=== PATIENT | male | born 1960 ===

== ENCOUNTER 2025-01-24 12:30 | Inpatient (IN) | payer OTHER ==
[~2025-01-24] VITALS: Ht 167.6 cm; Wt 110.2 kg
[2025-01-24] MEDS ORDERED: HYDRALAZINE HCL25 MG PO (13:48)
[2025-01-24] MEDS ORDERED: IRBESARTAN75 MG PO (13:48)
[2025-01-24] MEDS ORDERED: NIFEDIPINE20 MG PO (13:48)
[2025-01-24] MEDS ORDERED: VALSARTAN-HCTZ1 EACH PO (13:48)
[2025-01-31] MEDS ORDERED: METRONIDAZOLE/SODIUM CHLORIDE 500 MG/100 ML PIGGYBACK IV ONE (10:02)
[2025-01-31] MEDS ORDERED: LIDOCAINE HCL 1%/EPINEPHRINE 20ML VIAL IJ ONE (12:53)
[2025-01-31] MEDS ORDERED: BUPIVACAINE HCL/MPF 0.5% 30ML VIAL ONE (12:53)
[2025-01-31] MEDS ORDERED: levoFLOXacin IN DEXTROSE 5 % 5 MG/ML PIGGYBAG IV ONE (15:00)
[2025-01-31] MEDS ORDERED: DEXTROSE 50 % IN WATER 0.5 G/ML DISP.SYRIN IV PRN ×2 (18:00)
[2025-01-31] MEDS ORDERED: MORPHINE SULFATE 4 MG/ML CARTRIDGE IV PRN (18:00)
[2025-01-31] MEDS ORDERED: OxyCODONE HCL 5 MG TABLET (ROXICODONE) PO PRN (18:00)
[2025-01-31] MEDS ORDERED: RINGERS SOLUTION,LACTATED 1,000 ML IV SCH (18:00)
[2025-01-31] MEDS ORDERED: ONDANSETRON HCL 2 MG/ML VIAL IV PRN (18:00)
[2025-01-31] MEDS ORDERED: INSULIN LISPRO 1,000 UNIT/10 ML UNITS SUBCUTANEO PRN (18:00)
[2025-01-31] MEDS ORDERED: ACETAMINOPHEN 500 MG GEL..CAP PO SCH (20:00)
[2025-01-31 20:04] LABS: BASO % 0.1 % (0.1-1.2); EOS # 0.03 (0.04-0.54); EOS % 0.2 % (0.7-7.0); LYMPH # 1.35 (1.18-3.74); LYMPH % 7.1 % (19.3-53.1); MEAN PLATELET VOLUME 8.60 fl (9.4-12.4); MONO # 0.98 (0.24-0.82); MONO % 5.2 % (4.7-12.5); NEUT # 16.47 (1.56-6.13); NEUT % 86.9 % (34.0-71.1); RED CELL DISTRIBUTION WIDTH 13.1 % (11.6-14.4)
[2025-01-31 20:16] VITALS: BP 152/74; O2SAT 96
[2025-01-31 20:34] LABS: BUN CREA RATIO 17.0 (7.0-25.0); CREATININE SERUM 1.57 mg/dL (0.70-1.30); GFR 44.7; OSMOLALITY SERUM 284.0 MOSM/KG (275-295)
[2025-01-31 20:37] LABS: GLUCOSE FASTING 225.0 mg/dL (65-100)
[2025-01-31] MEDS ORDERED: FAMOTIDINE/PF 20 MG/2 ML VIAL IV PUSH SCH (21:00)
[2025-02-01] MEDS ORDERED: GABAPENTIN 300 MG CAPSULE PO SCH (01:00)
[2025-02-01 01:06] VITALS: BP 171/84; O2SAT 96
[2025-02-01 06:22] LABS: BASO % 0.4 % (0.1-1.2); EOS # 0.09 (0.04-0.54); EOS % 0.5 % (0.7-7.0); LYMPH # 1.98 (1.18-3.74); LYMPH % 10.1 % (19.3-53.1); MEAN PLATELET VOLUME 8.90 fl (9.4-12.4); MONO # 1.38 (0.24-0.82); MONO % 7.0 % (4.7-12.5); NEUT # 16.12 (1.56-6.13); NEUT % 81.7 % (34.0-71.1); RED CELL DISTRIBUTION WIDTH 12.6 % (11.6-14.4)
[2025-02-01 07:02] LABS: BUN CREA RATIO 15.0 (7.0-25.0); CREATININE SERUM 1.19 mg/dL (0.70-1.30); GFR 61.54; OSMOLALITY SERUM 280.0 MOSM/KG (275-295)
[2025-02-01 07:08] LABS: GLUCOSE FASTING 211.0 mg/dL (65-100)
[2025-02-01 08:00] VITALS: BP 149/94; O2SAT 97
[2025-02-01 08:33] VITALS: BP 110/73; O2SAT 100
[2025-02-01] MEDS ORDERED: PATIENTS OWN MEDICATION (MEDICAMENTO EN PISO) PO SCH (09:00)
[2025-02-01] MEDS ORDERED: NIFEDIPINE 60 MG TAB.SA.OSM PO SCH (09:00)
[2025-02-01] MEDS ORDERED: INSULIN GLARGINE,HUM.REC.ANLOG 1,000 UNITS/10 ML UNITS SUBCUTANEO STA (10:14)
[2025-02-01 14:00] VITALS: BP 135/82; O2SAT 96
[2025-02-01] MEDS ORDERED: ATORVASTATIN CALCIUM 40 MG TABLET PO SCH (17:00)
[2025-02-01] MEDS ORDERED: ENOXAPARIN SODIUM 40 MG/0.4 ML SYRINGE SUBCUTANEO SCH (17:00)
[2025-02-02 06:59] LABS: BASO % 0.4 % (0.1-1.2); EOS # 1.26 (0.04-0.54); EOS % 6.0 % (0.7-7.0); LYMPH # 4.09 (1.18-3.74); LYMPH % 19.4 % (19.3-53.1); MEAN PLATELET VOLUME 9.20 fl (9.4-12.4); MONO # 1.67 (0.24-0.82); MONO % 7.9 % (4.7-12.5); NEUT # 13.87 (1.56-6.13); NEUT % 65.9 % (34.0-71.1); RED CELL DISTRIBUTION WIDTH 13.4 % (11.6-14.4)
[2025-02-02 07:23] LABS: ALT/SGPT 21.0 U/L (12-78); AST/SGOT 13.0 U/L (15-37); BILIRUBIN TOTAL 1.01 mg/dL (0.3-1.2); BUN CREA RATIO 13.0 (7.0-25.0); CREATININE SERUM 1.14 mg/dL (0.70-1.30); GFR 64.67; GLOBULINA 3.1 G/DL (2.4-3.5); GLUCOSE FASTING 157.0 mg/dL (65-100); OSMOLALITY SERUM 282.0 MOSM/KG (275-295)
[2025-02-02 08:00] VITALS: BP 101/68; O2SAT 97
[2025-02-02] MEDS ORDERED: INSULIN GLARGINE,HUM.REC.ANLOG 1,000 UNITS/10 ML UNITS SUBCUTANEO SCH (09:00)
[2025-02-02] MEDS ORDERED: CIPROFLOXACIN IN 5 % DEXTROSE 200 ML IV SCH (09:00)
[2025-02-02] MEDS ORDERED: ENOXAPARIN SODIUM 40 MG/0.4 ML SYRINGE SUBCUTANEO SCH (09:00)
[2025-02-02] MEDS ORDERED: AMINO ACIDS/PROTEIN HYDROLYS 30 ML BLIST.PACK PO SCH (17:00)
[2025-02-02 18:27] VITALS: BP 114/72; O2SAT 97
[2025-02-03] VITALS: BP 128/74; O2SAT 96
[2025-02-03 06:17] LABS: BASO % 0.4 % (0.1-1.2); EOS # 0.96 (0.04-0.54); EOS % 4.8 % (0.7-7.0); LYMPH # 2.92 (1.18-3.74); LYMPH % 14.5 % (19.3-53.1); MEAN PLATELET VOLUME 8.80 fl (9.4-12.4); MONO # 1.60 (0.24-0.82); MONO % 7.9 % (4.7-12.5); NEUT # 14.49 (1.56-6.13); NEUT % 71.9 % (34.0-71.1); RED CELL DISTRIBUTION WIDTH 13.2 % (11.6-14.4)
[2025-02-03 07:19] LABS: BUN CREA RATIO 14.0 (7.0-25.0); CREATININE SERUM 1.19 mg/dL (0.70-1.30); GFR 61.54; GLUCOSE FASTING 119.0 mg/dL (65-100); OSMOLALITY SERUM 284.0 MOSM/KG (275-295)
[2025-02-03 08:00] VITALS: BP 117/74; O2SAT 98
[2025-02-03] MEDS ORDERED: INSULIN LISPRO 1,000 UNIT/10 ML UNITS SUBCUTANEO SCH (08:00)
[2025-02-03] MEDS ORDERED: INSULIN GLARGINE,HUM.REC.ANLOG 1,000 UNITS/10 ML UNITS SUBCUTANEO SCH (09:00)
[2025-02-03] MEDS ORDERED: POTASSIUM CHLORIDE 20MEQ/100ML H2O PB IV NR (12:00)
[2025-02-03 17:00] VITALS: BP 156/82; O2SAT 98
[2025-02-03] MEDS ORDERED: POTASSIUM PHOS,M-BASIC-D-BASIC 3 MM/ML VIAL IV NR (17:00)
[2025-02-03] MEDS ORDERED: Cyanocobalamin/Mecobalamin 1 TAB.SL SL NR (17:15)
[2025-02-03] MEDS ORDERED: SOD FERRIC GLUC COMPLX/SUCROSE 62.5 MG in 0.9 % SODIUM CHLORIDE 50 ML IV NR (17:15)
[2025-02-04 01:51] VITALS: BP 111/68; O2SAT 100
[2025-02-04 08:36] VITALS: BP 142/75; O2SAT 96
[2025-02-04] MEDS ORDERED: Cyanocobalamin/Mecobalamin 1 TAB.SL SL SCH (09:00)
[2025-02-04] MEDS ORDERED: SOD FERRIC GLUC COMPLX/SUCROSE 62.5 MG in 0.9 % SODIUM CHLORIDE 50 ML IV SCH (09:00)
[2025-02-04] MEDS ORDERED: INSULIN LISPRO 1,000 UNIT/10 ML UNITS SUBCUTANEO SCH (12:00)
[2025-02-04] MEDS ORDERED: VANCOMYCIN HCL 1,000 MG VIAL IV SCH (12:46)
[2025-02-04] MEDS ORDERED: VANCOMYCIN HCL 1,000 MG VIAL ONE ×2 (13:06→15:44)
[2025-02-04] MEDS ORDERED: MEROPENEM 500 MG/VIAL VIAL IV SCH (17:00)
[2025-02-05 02:52] VITALS: BP 141/82; O2SAT 98
[2025-02-05] MEDS ORDERED: DIATRIZOATE MEGLUMINE, SODIUM 30 ML BOTTLE PO NR (05:00)
[2025-02-05] MEDS ORDERED: VANCOMYCIN HCL 1,000 MG VIAL ONE ×2 (07:00→19:57)
[2025-02-05] MEDS ORDERED: INSULIN GLARGINE,HUM.REC.ANLOG 1,000 UNITS/10 ML UNITS SUBCUTANEO SCH ×2 (09:00)
[2025-02-05 09:11] VITALS: BP 138/84; O2SAT 97
[2025-02-05 11:21] LABS: BASO % 0.5 % (0.1-1.2); EOS # 1.19 (0.04-0.54); EOS % 7.2 % (0.7-7.0); LYMPH # 3.46 (1.18-3.74); LYMPH % 20.8 % (19.3-53.1); MEAN PLATELET VOLUME 8.20 fl (9.4-12.4); MONO # 1.49 (0.24-0.82); MONO % 9.0 % (4.7-12.5); NEUT # 10.22 (1.56-6.13); NEUT % 61.4 % (34.0-71.1); RED CELL DISTRIBUTION WIDTH 13.3 % (11.6-14.4)
[2025-02-05 12:20] LABS: BUN CREA RATIO 15.0 (7.0-25.0); CREATININE SERUM 0.85 mg/dL (0.70-1.30); GFR 90.75; GLUCOSE FASTING 155.0 mg/dL (65-100); OSMOLALITY SERUM 288.0 MOSM/KG (275-295)
[2025-02-05] MEDS ORDERED: MAGNESIUM SULFATE IN WATER 50 ML IV NR (13:00)
[2025-02-05 16:45] VITALS: BP 161/87; O2SAT 100
[2025-02-05] MEDS ORDERED: POTASSIUM CHLORIDE 20MEQ/100ML H2O PB IV NR (17:00)
[2025-02-05] MEDS ORDERED: VANCOMYCIN HCL 1,000 MG VIAL IV SCH (21:00)
[2025-02-06] MEDS ORDERED: POTASSIUM PHOS,M-BASIC-D-BASIC 3 MM/ML VIAL IV NR
[2025-02-06 00:43] VITALS: BP 137/81; O2SAT 100
[2025-02-06 06:27] LABS: BASO % 0.5 % (0.1-1.2); EOS # 0.98 (0.04-0.54); EOS % 6.9 % (0.7-7.0); LYMPH # 3.94 (1.18-3.74); LYMPH % 27.7 % (19.3-53.1); MEAN PLATELET VOLUME 8.30 fl (9.4-12.4); MONO # 1.35 (0.24-0.82); MONO % 9.5 % (4.7-12.5); NEUT # 7.66 (1.56-6.13); NEUT % 53.9 % (34.0-71.1); RED CELL DISTRIBUTION WIDTH 13.2 % (11.6-14.4)
[2025-02-06 07:30] VITALS: BP 162/91; O2SAT 98
[2025-02-06] MEDS ORDERED: VANCOMYCIN HCL 5 MG/ML REDILUIDO IV SCH (09:00)
[2025-02-06 16:17] VITALS: BP 148/80; O2SAT 98
[2025-02-07 01:02] VITALS: BP 141/82; O2SAT 98
[2025-02-07 08:00] VITALS: BP 144/76; O2SAT 98
[2025-02-07] MEDS ORDERED: INSULIN GLARGINE,HUM.REC.ANLOG 1,000 UNITS/10 ML UNITS SUBCUTANEO SCH (09:00)
[2025-02-07 16:51] VITALS: BP 149/82; O2SAT 97
[2025-02-07] MEDS ORDERED: LACTOBACILLUS ACIDOPHILUS 1 CAP CAP PO SCH (17:00)
[2025-02-08] VITALS: BP 152/80; O2SAT 99
[2025-02-08 07:13] LABS: BASO % 0.4 % (0.1-1.2); EOS # 0.76 (0.04-0.54); EOS % 5.1 % (0.7-7.0); LYMPH # 2.91 (1.18-3.74); LYMPH % 19.6 % (19.3-53.1); MEAN PLATELET VOLUME 8.00 fl (9.4-12.4); MONO # 1.49 (0.24-0.82); MONO % 10.1 % (4.7-12.5); NEUT # 9.40 (1.56-6.13); NEUT % 63.5 % (34.0-71.1); RED CELL DISTRIBUTION WIDTH 13.4 % (11.6-14.4)
[2025-02-08 08:00] VITALS: BP 148/68; O2SAT 96
[2025-02-08 09:09] LABS: ALT/SGPT 19.0 U/L (12-78); AST/SGOT 21.0 U/L (15-37); BILIRUBIN TOTAL 0.72 mg/dL (0.3-1.2); BUN CREA RATIO 20.0 (7.0-25.0); CREATININE SERUM 0.69 mg/dL (0.70-1.30); GFR 115.44; GLOBULINA 3.0 G/DL (2.4-3.5); GLUCOSE FASTING 118.0 mg/dL (65-100); OSMOLALITY SERUM 285.0 MOSM/KG (275-295)
[2025-02-08] MEDS ORDERED: MAGNESIUM SULFATE IN WATER 50 ML IV NR (11:15)
[2025-02-08] MEDS ORDERED: GABAPENTIN300 MG PO (13:12)
[2025-02-08] MEDS ORDERED: INTEGRA F CAPS1 EACH PO (13:12)
[2025-02-08] MEDS ORDERED: VALSARTAN-HCTZ1 EACH PO (13:12)
[2025-02-08] MEDS ORDERED: INTESTINEX680 M1 PO (13:12)
[2025-02-08] MEDS ORDERED: HYDRALAZINE HCL25 MG PO (13:12)
[2025-02-08] MEDS ORDERED: zyvox PO (13:12)
[2025-02-08] MEDS ORDERED: ABANEU-SL TABL1 EACH SL (13:12)
== END 2025-02-08 16:57 | DRG 330 ==
LOC: SURH 01-31 07:00 → O/R 01-31 10:00 → SURH 01-31 12:30 → SURG 01-31 18:49 → SURH 02-03 20:36 → SURG 02-03 22:34 → SURH 02-03 22:35
PROVIDERS: Internal Medicine Endocrinology, Diabetes & Metabolism; Internal Medicine Geriatric Medicine; ADMIT Surgery; ATTEND Surgery
PROC: 0DTN4ZZ Resection of Sigmoid Colon, Percutaneous Endoscopic Approach (ICD-10-PCS; 2025-01-31)
PROC: 07BC4ZZ Excision of Pelvis Lymphatic, Percutaneous Endoscopic Approach (ICD-10-PCS; 2025-01-31)
PROC: 0DBP4ZZ Excision of Rectum, Percutaneous Endoscopic Approach (ICD-10-PCS; principal; 2025-01-31 07:00)
PROC: BW21YZZ Computerized Tomography (CT Scan) of Abdomen and Pelvis using Other Contrast (ICD-10-PCS; 2025-02-05)
PROC: 02HV33Z Insertion of Infusion Device into Superior Vena Cava, Percutaneous Approach (ICD-10-PCS; 2025-02-08)
DX: C18.7 Malignant neoplasm of sigmoid colon (principal); K92.1 Melena; N17.9 Acute kidney failure, unspecified; E11.9 Type 2 diabetes mellitus without complications; Z79.4 Long term (current) use of insulin; I10 Essential (primary) hypertension; E66.9 Obesity, unspecified; D72.829 Elevated white blood cell count, unspecified; D64.9 Anemia, unspecified